=== PATIENT | male | born 1945 | race Caucasian/White ===

== ENCOUNTER 2016-11-21 16:58 | Emergency (ER) | payer MEDICARE, OTHER ==
--- NOTE | 2016-11-21 17:26 | ED Physician Documentation ---
History of Present Illness - Stated complaint Stated Complaint: CHEST PX/MALE - Chief complaint Chief Complaint: General - History obtained from History obtained from: Patient - History of Present Illness Timing: Other (71-year-old gentleman, relatively healthy with the exception of a DVT after a broken foot for which he was made on Xarelto for approximately 3 months and stopped about 10 months ago. For the last week he has had profuse foul-smelling diarrhea. It is not associated with stomach cramps or nausea or fever. He did take a course of Augmentin a couple of weeks ago for sinus infection. 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 Secondly last night while moving a refrigerator he developed sharp left-sided chest pain that is worse with laying flat not associated with trouble breathing or nausea.) Review of Systems Ten Systems: 10 systems reviewed and negative Constitutional: denies: Fever, Chills Throat: denies: Dental pain / toothache, Sore throat Cardiac: reports: Chest pain / pressure. denies: Palpitations, Pedal edema Respiratory: denies: Dyspnea, Cough, Hemoptysis, Wheezing PD PAST MEDICAL HISTORY - Past Medical History Past Medical History: Yes Cardiovascular: Deep vein thrombosis - Present Medications Home Medications: Ambulatory Orders Medication Instructions Recorded Confirmed Aspirin [Aspirin EC] 81 mg PO DAILY 11/21/16 11/21/16 Meloxicam 0 mg PO DAILY 11/21/16 11/21/16 Rivaroxaban [Xarelto] 15 mg PO DAILY 21 Days 11/21/16 - Allergies Allergies/Adverse Reactions: Allergies Allergy/AdvReac Type Severity Reaction Status Date / Time Sulfa (Sulfonamide Allergy Hives Verified 11/21/16 17:10 Antibiotics) - Living Situation Living Situation: reports: With spouse/s.o. Living Arrangement: reports: At home - Social History Does the pt smoke?: No Does the pt have substance abuse?: No - Family History Family history: reports: Non contributory PD ED PE NORMAL - Vitals Vital signs reviewed: Yes - General General: Alert and oriented X 3, No acute distress - HEENT HEENT: PERRL, EOMI - Neck Neck: Supple, no meningeal sign, No bony TTP - Cardiac Cardiac: RRR, No murmur - Respiratory Respiratory: No respiratory distress, Clear bilaterally - Abdomen Abdomen: Soft, Non tender - Back Back: No CVA TTP, No spinal TTP - Derm Derm: Normal color, Warm and dry - Extremities Extremities: No edema, No calf tenderness / cord - Neuro Neuro: Alert and oriented X 3, Normal speech - Psych Psych: Normal mood, Normal affect Results - Vitals Vitals: Vital Signs - 24 hr 11/21/16 11/21/16 11/21/16 17:04 18:34 19:20 Temperature 36.6 C Heart Rate 64 62 62 Respiratory 18 20 20 Rate Blood Pressure 130/73 139/80 H 143/84 H O2 Saturation 96 97 95 Oxygen O2 Source Room air - EKG (time done) 1716 Rate: Rate (enter#) (63) Rhythm: NSR Intervals: Prolonged DE QRS: Normal Ischemia: Normal ST segments Compare to prior EKG: Old EKG unavailable Computer interpretation: Agree with computer - Labs Labs: Microbiology 11/21/16 18:43 Campylobacter Antigen Assay - Final Stool Laboratory Tests 11/21/16 11/21/16 11/21/16 17:26 17:26 17:26 WBC 8.4 RBC 4.94 Hgb 15.2 Hct 45.6 MCV 92.2 MCH 30.8 MCHC 33.4 RDW 13.6 Plt Count 250 MPV 8.6 Neut # 5.2 Lymph # 1.5 Teller # 1.0 Eos # 0.7 Baso # 0.1 Absolute Nucleated RBC 0.00 Nucleated RBCs 0.0 Sodium 140 Potassium 4.0 Chloride 107 Carbon Dioxide 24 Anion Gap 9.0 BUN 20 Creatinine 0.9 Estimated GFR (MDRD) 84 L Glucose 81 Calcium 9.1 Total Bilirubin 1.1 H AST 23 ALT 27 Alkaline Phosphatase 72 Troponin I < 0.04 Total Protein 7.0 Albumin 3.9 Globulin 3.1 Albumin/Globulin Ratio 1.3 Lipase 30 - Rads (name of study) CT PA Radiology: EMP read contemporaneously (LLL PE) PD MEDICAL DECISION MAKING - ED course ED course: 71-year-old gentleman with ongoing diarrhea after Augmentin, C. difficile negative, cultures and Giardia pending. Basic blood work negative, he does have a small PE, has history of DVT. He is of a low pulmonary embolism severity index and can be discharged based on recent studies and feels comfortable with this. He is started on Xarelto. I try to get a hold of his physician but we could not make her way through the phone tree, he seems very reliable so he will call him tomorrow. Departure - Departure Disposition: 01 Home, Self Care Clinical Impression: Pulmonary embolism Qualifiers: Pulmonary embolism type: other Chronicity: acute Acute cor pulmonale presence: without acute cor pulmonale Qualified Code(s): I26.99 - Other pulmonary embolism without acute cor pulmonale Diarrhea Qualifiers: Diarrhea type: unspecified type Qualified Code(s): R19.7 - Diarrhea, unspecified Condition: Good Record reviewed to determine appropriate education?: Yes Instructions: Embolism Pulmonary Dc, ED Diarrhea Viral Prescriptions: Rivaroxaban [Xarelto] 15 mg PO DAILY 21 Days Comments: Stop your meloxicam while on the blood thinners. Follow-up with your doctor LORA, he will need ongoing Xarelto at a different dose, likely lifelong. Your blood pressure was elevated today on check into the emergency department. This does not mean that you have hypertension, it is a common phenomenon to come to the emergency department and have elevated blood pressure. I recommend that she see her primary care physician within the week to have it rechecked when you are feeling better.
[2016-11-21 17:38] LABS: BASOPHILS # (AUTO) 0.1 10^3/uL (0.0-0.1); BASOPHILS % (AUTO) 0.7 %; EOSINOPHILS # (AUTO) 0.7 10^3/uL (0.0-0.7); HCT - HEMATOCRIT 45.6 % (42.0-52.0); HGB - HEMOGLOBIN 15.2 g/dL (14.0-18.0); LYMPHOCYTES # (AUTO) 1.5 10^3/uL (1.5-3.5); LYMPHOCYTES % (AUTO) 17.3 %; MEAN CORPUSCULAR HEMOGLOBIN 30.8 pg (27.0-31.0); MEAN CORPUSCULAR HGB CONC 33.4 g/dL (32.0-36.0); MEAN CORPUSCULAR VOLUME 92.2 fL (80.0-94.0); MEAN PLATELET VOLUME 8.6 fL (7.4-11.4); MONOCYTES % (AUTO) 12.2 %; NEUTROPHILS # (AUTO) 5.2 10^3/uL (1.5-6.6); NEUTROPHILS % (AUTO) 61.8 %; RED BLOOD COUNT 4.94 10^6/uL (4.70-6.10); RED CELL DISTRIBUTION WIDTH 13.6 % (12.0-15.0); UNCORRECTED WHITE BLOOD COUNT 8.4 x10^3/uL; WHITE BLOOD COUNT 8.4 x10^3/uL (4.8-10.8)
[2016-11-21 17:47] LABS: ALBUMIN/GLOBULIN RATIO 1.3 (1.0-2.2); BILIRUBIN,TOTAL 1.1 mg/dL (0.2-1.0); CALCIUM 9.1 mg/dL (8.5-10.3); CREATININE 0.9 mg/dL (0.6-1.2)
[2016-11-21] MEDS ORDERED: IOPAMIDOL-300 100 ML VIAL IVP ONE (18:13)
--- NOTE | 2016-11-21 18:47 | CT Report ---
EXAM: CT ANGIOGRAM CHEST EXAM DATE: 11/21/2016 06:19 PM. CLINICAL HISTORY: Chest pain. COMPARISON: None. TECHNIQUE: Routine helical imaging was performed through the chest in the pulmonary arterial phase. I V Contrast: 80 mL Isovue 300. Reconstructions: Coronal 3-D MIP reconstructions.Sagittal and coronal. In accordance with CT protocol optimization, one or more of the following dose reduction techniques w ere utilized for this exam: automated exposure control, adjustment of mA and/or KV based on patient s ize, or use of iterative reconstructive technique. FINDINGS: Pulmonary Arteries: Diagnostic quality: Adequate through the segmental arteries. Filling defects in the left lower lobe p ulmonary artery branches consistent with acute emboli. A small linear branching embolism is also seen in the right lower lobe pulmonary artery branch. No central saddle embolus. RV/LV is within normal limits. There is no interventricular septal bowing. There is no reflux of cont rast material in the IVC. Lungs/Pleura: Subpleural scarring and/or hypoventilatory changes at both lung bases. No pleural effus ion or pneumothorax. Mediastinum: Normal. No cardiac enlargement or adenopathy. Thoracic Aorta: Unremarkable. Upper Abdomen: Unremarkable. Other: None. IMPRESSION: 1. Predominantly left lower lobe pulmonary artery branch acute emboli. RADIA The above findings were discussed with Louise by Dr. Dom Munoz at 18:43 hrs on 11/21/16. Referring Provider Line: [phone] SITE ID: [id number]
[2016-11-21] MEDS ORDERED: RIVAROXABAN 15 MG TABLET PO STA (18:53)
[2016-11-21 19:21] VITALS: BP 143/84
[2016-11-21] MEDS ORDERED: HYDROcod/ACET 5/325 Prepack 6 PO STA (19:52)
[2016-11-21] MEDS ORDERED: HYDROcod/ACET 5/325 Prepack 6 PO ONE (20:01)
== END 2016-11-21 20:09 | disposition home or self-care (01) ==
LOC: ED 16:58
DX: I26.99 Other pulmonary embolism without acute cor pulmonale (principal); R19.7 Diarrhea, unspecified; R03.0 Elevated blood-pressure reading, without diagnosis of hypertension; I45.81 Long QT syndrome; Z86.718 Personal history of other venous thrombosis and embolism; Z79.82 Long term (current) use of aspirin
CPT/HCPCS: 36415; 71275; 80053; 83690; 84484; 85025; 87015; 87045; 87046; 87177; 87209; 87272; 87329; 87493; 93005; 99284; 99285; A9270; Q9967